=== PATIENT | female | born 1995 | race Caucasian/White ===

== ENCOUNTER 2020-01-14 13:25 | Emergency (ER) | payer SELFPAY ==
[~2020-01-14] VITALS: Ht 154.9 cm; Wt 71.4 kg
[2020-01-14 14:08] LABS: BASOPHILS % (AUTO) 1 % (0-1); EOSINOPHILS % (AUTO) 1 % (1-7); LYMPHOCYTES % (AUTO) 29 % (22-44); MEAN CORPUSCULAR HEMOGLOBIN 28.9 pg (27.0-34.8); MEAN PLATELET VOLUME 8.2 fL (7.4-10.4); MONOCYTES % (AUTO) 6 % (2-9); NEUTROPHILS % (AUTO) 64 % (42-75); PLATELET COUNT 327 x10^3/uL (130-400); RED BLOOD COUNT 5.17 x10^6/uL (3.82-5.3); RED CELL DISTRIBUTION WIDTH 13.5 % (9.6-15.2)
[2020-01-14 14:09] LABS: MD NO
--- NOTE | 2020-01-14 14:22 | NUR ---
PT PRESENTS TO ED WITH C/O PELVIC PAIN X 10 DAYS, LMP 11/27/2019. PT DENIES BLEEDING/DISCHARGE. UNKNOWN STATUS. PT IS A&OX4, RESPS EVEN AND UNLABORED. PT TAKEN TO US AT THIS TIME.
--- NOTE | 2020-01-14 15:06 | NUR ---
pt back from US, urine sent. awaiting ua and dispo.
--- NOTE | 2020-01-14 15:15 | NUR ---
report given to DENZEL [place] who is assuming care.
[2020-01-14 15:21] LABS: MICROSCOPIC INDICATED
[2020-01-14 15:22] VITALS: BP 100/58
--- NOTE | 2020-01-14 15:23 | NUR ---
REPORT FROM DENZEL DEJESUS. FIRST CONTACT WITH PT. PT RESTING IN GURNEY, AWAKE/ALERT, NAD NOTED. FRIEND AT BEDSIDE. PT REPORTS 6/10 PAIN AND DENIES NEED FOR PAIN/NAUSEA MEDICATIONS. PT UPDATED TO POC (RESULTS/RECHECK) AND DEMONSTRATES UNDERSTANDING.
--- NOTE | 2020-01-14 16:04 | NUR ---
DC EDUCATION PROVIDED, PT DEMONSTRATES UNDERSTANDING. PT AMBULATED STEADILY TO DC WITH RN. FRIEND TO TRANSPORT PT HOME.
== END 2020-01-14 16:08 | disposition home or self-care (01) ==
LOC: ED 13:55
DX: N93.8 Other specified abnormal uterine and vaginal bleeding (principal); R10.31 Right lower quadrant pain; R10.32 Left lower quadrant pain; R11.0 Nausea
CPT/HCPCS: 36415; 76830; 81001; 84703; 85025; 87086; 99284